=== PATIENT | male | born 1935 | race Caucasian/White ===

== ENCOUNTER 2020-11-05 18:06 | Observation (INO) ==
[2020-11-05 18:28] LABS: Basophils % 0.3 %; Hematocrit 43.3 % (37.5-50.1); Hemoglobin 14.6 g/dL (12.9-16.9); Immature Granulocytes % 0.3 % (0-4); Lymphocytes # 0.6 K/mcL (0.6-4.6); Lymphocytes % 14.5 %; Mean Corpuscular HGB Conc 33.7 g/dL (31.6-35.5); Mean Corpuscular Hemoglobin 31.4 pg (28.0-33.3); Mean Corpuscular Volume 93.1 fL (83.0-100.0); Mean Platelet Volume 9.8 fL (9.4-12.4); Monocytes # 0.7 K/mcL (0.0-1.3); Monocytes % 18.3 %; Neutrophils # 2.6 K/mcL (1.6-8.9); Platelet Count 125 K/mcL (140-400); Red Blood Count 4.65 M/mcL (4.19-5.50); Red Cell Distribution Width 13.3 % (11.5-14.5); Segmented Neutrophils % 66.6 %; White Blood Count 3.9 K/mcL (4.3-11.1)
[2020-11-05 18:40] LABS: BUN/Creatinine Ratio 26 (6-26); Blood Urea Nitrogen 23 mg/dL (8-23); Calcium 8.6 mg/dL (8.6-10.3); Carbon Dioxide 26 mEq/L (23-29); Chloride 97 mEq/L (98-107); Glucose 93 mg/dL (70-105); Osmolality,Calculated 273 (280-300); Potassium 4.1 mEq/L (3.5-5.1); Sodium 130 mEq/L (136-145); eGFR For African Americans > 60 (> 60); eGFR For Non-African Americans > 60 (> 60)
[2020-11-05] MEDS ORDERED: Naloxone 0.4 MG/ML INJ IVP PRN ×3 (20:39→21:05)
[2020-11-05] MEDS ORDERED: Acetaminophen 325 MG TABLET PO PRN (20:39)
[2020-11-05] MEDS ORDERED: Ondansetron 4 MG/2 ML VIAL IVP PRN ×3 (20:39→21:05)
[2020-11-05] MEDS ORDERED: 0.9 % Sodium Chloride 1,000 ML IVC SCH (21:05)
[2020-11-05] MEDS: Latanoprost 2.5 ML BOTTLE BOTH EYES SCH (23:03)
[2020-11-05] MEDS: Carbidopa/Levodopa 25/100 TABLET PO SCH (23:09)
[2020-11-05] MEDS: Acetaminophen 325 MG TABLET PO PRN (23:10)
[2020-11-06] MEDS ORDERED: Ipratropium/Albuterol Neb 3 ML IH SCH ×2
[2020-11-06] MEDS ORDERED: levoFLOXacin 500 MG TABLET PO ONE (00:45)
[2020-11-06] MEDS: Carbidopa/Levodopa 25/100 TABLET PO SCH ×5 (06:09→21:32)
[2020-11-06] MEDS: Acetaminophen 325 MG TABLET PO PRN (06:09)
[2020-11-06 06:14] LABS: Hematocrit 42.7 % (37.5-50.1); Hemoglobin 14.5 g/dL (12.9-16.9); Mean Corpuscular Hemoglobin 31.5 pg (28.0-33.3); Mean Corpuscular Volume 92.6 fL (83.0-100.0); Mean Platelet Volume 9.7 fL (9.4-12.4); Platelet Count 111 K/mcL (140-400); Red Blood Count 4.61 M/mcL (4.19-5.50); Red Cell Distribution Width 13.2 % (11.5-14.5); White Blood Count 4.2 K/mcL (4.3-11.1)
[2020-11-06 06:30] LABS: BUN/Creatinine Ratio 26 (6-26); Blood Urea Nitrogen 20 mg/dL (8-23); Calcium 8.3 mg/dL (8.6-10.3); Carbon Dioxide 25 mEq/L (23-29); Chloride 100 mEq/L (98-107); Glucose 84 mg/dL (70-105); Magnesium 1.9 mg/dL (1.6-2.6); Osmolality,Calculated 278 (280-300); Sodium 133 mEq/L (136-145); eGFR For African Americans > 60 (> 60); eGFR For Non-African Americans > 60 (> 60)
[2020-11-06] MEDS: Dexamethasone Sodium Phos/PF 10 MG/ML VIAL IVP SCH (08:45)
[2020-11-06] MEDS: cefTRIAXone 1,000 MG in Water for inj. (sterile) 10 ML IVP SCH (08:46)
[2020-11-06 08:53] LABS: Ferritin 270 ng/mL (20-250)
[2020-11-06] MEDS ORDERED: levoFLOXacin 750 MG/150 ML 750 MG/150 ML BAG IVPB SCH ×2 (09:00)
[2020-11-06] MEDS ORDERED: Dexamethasone Sodium Phos/PF 10 MG/ML VIAL IVP SCH (09:00)
[2020-11-06 10:21] LABS: C-Reactive Protein 82 mg/L (Less than 10)
[2020-11-06] MEDS: Latanoprost 2.5 ML BOTTLE BOTH EYES SCH (21:32)
[2020-11-07] MEDS: Carbidopa/Levodopa 25/100 TABLET PO SCH ×3 (05:35→12:55)
[2020-11-07 05:41] LABS: Hematocrit 46.6 % (37.5-50.1); Hemoglobin 15.8 g/dL (12.9-16.9); Mean Corpuscular HGB Conc 33.9 g/dL (31.6-35.5); Mean Corpuscular Hemoglobin 31.5 pg (28.0-33.3); Mean Corpuscular Volume 92.8 fL (83.0-100.0); Mean Platelet Volume 9.6 fL (9.4-12.4); Platelet Count 143 K/mcL (140-400); Red Blood Count 5.02 M/mcL (4.19-5.50); Red Cell Distribution Width 13.3 % (11.5-14.5); White Blood Count 10.3 K/mcL (4.3-11.1)
[2020-11-07 05:58] LABS: BUN/Creatinine Ratio 24 (6-26); Blood Urea Nitrogen 19 mg/dL (8-23); Calcium 8.9 mg/dL (8.6-10.3); Carbon Dioxide 25 mEq/L (23-29); Chloride 100 mEq/L (98-107); Glucose 92 mg/dL (70-105); Osmolality,Calculated 286 (280-300); Potassium 4.1 mEq/L (3.5-5.1); Sodium 137 mEq/L (136-145); eGFR For African Americans > 60 (> 60); eGFR For Non-African Americans > 60 (> 60)
[2020-11-07] MEDS ORDERED: *HR* Enoxaparin 40 MG/0.4 ML SYRINGE SQ SCH (06:00)
[2020-11-07] MEDS: Acetaminophen 325 MG TABLET PO PRN (06:53)
[2020-11-07] MEDS: Dexamethasone Sodium Phos/PF 10 MG/ML VIAL IVP SCH (09:11)
[2020-11-07] MEDS: cefTRIAXone 1,000 MG in Water for inj. (sterile) 10 ML IVP SCH (09:12)
[2020-11-07] MEDS ORDERED: 0.9 % Sodium Chloride 500 ML IVC ONE (10:24)
[2020-11-07 14:38] VITALS: BP 103/70
[2020-11-07 14:59] LABS: BUN/Creatinine Ratio 27 (6-26); Blood Urea Nitrogen 19 mg/dL (8-23); Calcium 8.7 mg/dL (8.6-10.3); Carbon Dioxide 24 mEq/L (23-29); Chloride 103 mEq/L (98-107); Glucose 126 mg/dL (70-105); Osmolality,Calculated 284 (280-300); Potassium 4.2 mEq/L (3.5-5.1); Sodium 135 mEq/L (136-145); eGFR For African Americans > 60 (> 60); eGFR For Non-African Americans > 60 (> 60)
== END 2020-11-07 14:30 | disposition short-term general hospital (02) ==
LOC: EMEROOGRE 18:06 → INPGRE 18:06
PROVIDERS: ADMIT Family Medicine; ATTEND Family Medicine